=== PATIENT | female | born 1945 | race Caucasian/White ===

== ENCOUNTER 2017-10-22 12:28 | Emergency (ER) | payer MEDICARE, MEDICAID ==
[~2017-10-22] VITALS: Ht 162.6 cm; Wt 68.1 kg
[~2017-10-22 12:28] MED LIST: ADV50250 IH; ALBU8.5H8 IH; ASPI1CPM9 PO; ASPI325T68 PO; BACL10TA2 PO; CLOP75TA35 PO; ESOM40CA PO; FLO0.1T PO; FURO40TA4 PO; GUAI1TBM19 PO; LEVO137T21 PO; LORA0.5T PO; MONT10TA21 PO; NORCO10T PO; POTA10CA44 PO; PROC10TA PO; ROSU20TA PO; SOLI5TAB6 PO
[2017-10-22] MEDS ORDERED: ondansetron/PF 4mg/2ml inj IV ONE (12:40)
[2017-10-22] MEDS ORDERED: normal saline 1000ML IV soln IVB ONE (12:40)
[2017-10-22] MEDS ORDERED: nystatin 500,000 unit/5ML UD oral suspension PO ONE (12:40)
[2017-10-22] MEDS ORDERED: LIDOcaine Viscous 15ml cup PO ONE (12:40)
[2017-10-22] MEDS ORDERED: fluconazole 100mg tablet PO ONE (12:40)
[2017-10-22 12:55] LABS: BASOPHILS % (AUTO) 0.3 % (0-1); EOSINOPHILS # (AUTO) 0.2 X10'3 (0-0.9); EOSINOPHILS % (AUTO) 3.2 % (0-6); HEMATOCRIT 39.1 % (35.0-45.0); HEMOGLOBIN 13.7 g/dl (12.0-16.0); LYMPHOCYTES # (AUTO) 1.1 X10'3 (1.1-4.8); LYMPHOCYTES % (AUTO) 18.5 % (21-51); MEAN CORPUSCULAR VOLUME 91.3 FL (78-98); MEAN PLATELET VOLUME 7.9 FL (7.4-10.4); MONOCYTES # (AUTO) 0.7 X10'3 (0-0.9); PLATELET COUNT 166 X10'3 (140-440); RED BLOOD COUNT 4.28 X10'6 (4.20-5.60); RED CELL DISTRIBUTION WIDTH 13.4 % (11.5-14.5)
[2017-10-22 12:57] VITALS: BP 111/43
[2017-10-22 13:09] LABS: ALANINE AMINOTRANSFERASE 22 U/L (12-78); ALBUMIN 2.8 G/DL (3.4-5.0); ALBUMIN/GLOBULIN RATIO 0.7 (1.1-1.5); ALKALINE PHOSPHATASE 60 IU/L (46-116); ANION GAP 11 (8-16); ASPARTATE AMINO TRANSFERASE 19 U/L (10-37); BILIRUBIN,TOTAL 0.9 MG/DL (0.1-1.0); BLOOD UREA NITROGEN 17 MG/DL (7-18); BUN/CREATININE RATIO 20.5 (6.6-38.0); CALCIUM 8.6 MG/DL (8.5-10.1); CHLORIDE 99 MMOL/L (99-107); CREATININE 0.83 MG/DL (0.40-0.90); GLUCOSE 106 MG/DL (70-104); POTASSIUM 3.9 MMOL/L (3.5-5.1); SODIUM 136 MMOL/L (135-145); TOTAL CARBON DIOXIDE 25.8 MMOL/L (24-32); TOTAL PROTEIN 6.6 G/DL (6.4-8.2); eGFR 67 ML/MIN
[2017-10-22] MEDS ORDERED: NYST1000 PO (13:18)
[2017-10-22] MEDS ORDERED: ONDA4TAB9 SL (13:20)
== END 2017-10-22 13:59 | disposition home or self-care (01) ==
LOC: ER 12:28
DX: E86.0 Dehydration (principal); R11.2 Nausea with vomiting, unspecified; B37.9 Candidiasis, unspecified; I25.10 Atherosclerotic heart disease of native coronary artery without angina pectoris; E78.00 Pure hypercholesterolemia, unspecified; I25.2 Old myocardial infarction; J44.9 Chronic obstructive pulmonary disease, unspecified; K21.9 Gastro-esophageal reflux disease without esophagitis; E11.9 Type 2 diabetes mellitus without complications; G89.29 Other chronic pain; Z90.49 Acquired absence of other specified parts of digestive tract; Z98.890 Other specified postprocedural states; Z79.82 Long term (current) use of aspirin; Z79.899 Other long term (current) drug therapy; Z88.2 Allergy status to sulfonamides
CPT/HCPCS: 36415; 80053; 85025; 96361; 96374; 99284; J2405; J7030

== ENCOUNTER 2017-12-30 14:56 | Emergency (ER) | payer MEDICARE, MEDICAID ==
[~2017-12-30] VITALS: Ht 162.6 cm; Wt 67.8 kg
[~2017-12-30 14:56] MED LIST changes: -PROC10TA PO; +PROC10TA10 PO
[2017-12-30] MEDS ORDERED: ketorolac trometh. 30mg/ml inj. IM ONE (15:50)
[2017-12-30 16:05] VITALS: BP 122/66
== END 2017-12-30 16:17 | disposition home or self-care (01) ==
LOC: ER 14:56
DX: M54.5 Low back pain (principal); I25.10 Atherosclerotic heart disease of native coronary artery without angina pectoris; E78.00 Pure hypercholesterolemia, unspecified; I25.2 Old myocardial infarction; J44.9 Chronic obstructive pulmonary disease, unspecified; K21.9 Gastro-esophageal reflux disease without esophagitis; E11.9 Type 2 diabetes mellitus without complications; Z90.49 Acquired absence of other specified parts of digestive tract; Z90.710 Acquired absence of both cervix and uterus; Z98.890 Other specified postprocedural states; Z60.2 Problems related to living alone; Z79.82 Long term (current) use of aspirin; Z79.899 Other long term (current) drug therapy; Z88.1 Allergy status to other antibiotic agents; Z88.5 Allergy status to narcotic agent; Z88.2 Allergy status to sulfonamides
CPT/HCPCS: 96372; 99283; J1885

== ENCOUNTER 2018-01-05 14:48 | Emergency (ER) | payer MEDICARE, MEDICAID ==
[~2018-01-05] VITALS: Ht 162.6 cm; Wt 29.6 kg
[2018-01-05 15:23] LABS: CLARITY,URINE CLEAR (Clear); COLOR,URINE YELLOW (Yellow); GLUCOSE, URINE NEGATIVE (Neg); KETONES,URINE NEGATIVE (Neg); LEUKOCYTE ESTERASE ,URINE SMALL (Neg); NITRITES, URINE NEGATIVE (Neg); OCCULT BLOOD,URINE NEGATIVE (Neg); PH,URINE 5.5 (4.8-8.0); PROTEIN,URINE NEGATIVE (Neg); UROBILINOGEN,URINE 0.2 E.U/dL (0.2-1.0)
[2018-01-05 15:27] LABS: UA COLLECTION TYPE CLN CATCH MIDSTREAM
[2018-01-05 15:29] LABS: BACTERIA,URINE NONE SEEN /HPF (Neg); MUCUS STRANDS NONE SEEN /LPF (Neg); RBC,URINE 0-2 /HPF (0-2); SQUAMOUS EPITHELIAL CELL,UR FEW /LPF (FEW); WBC,URINE 0-4 /HPF (0-4)
[2018-01-05] MEDS ORDERED: PHEN-716 PO (16:07)
[2018-01-05] MEDS ORDERED: NITR100C6 PO (16:07)
[2018-01-05] MEDS ORDERED: MAGN296S50 PO (16:07)
[2018-01-05 16:15] VITALS: BP 115/58
== END 2018-01-05 16:16 | disposition home or self-care (01) ==
LOC: ER 14:48
DX: N39.0 Urinary tract infection, site not specified (principal); I25.10 Atherosclerotic heart disease of native coronary artery without angina pectoris; E78.00 Pure hypercholesterolemia, unspecified; I25.2 Old myocardial infarction; J44.9 Chronic obstructive pulmonary disease, unspecified; K21.9 Gastro-esophageal reflux disease without esophagitis; E11.9 Type 2 diabetes mellitus without complications; G89.29 Other chronic pain; Z90.49 Acquired absence of other specified parts of digestive tract; Z90.710 Acquired absence of both cervix and uterus; Z98.890 Other specified postprocedural states; Z88.2 Allergy status to sulfonamides; Z88.5 Allergy status to narcotic agent; Z79.899 Other long term (current) drug therapy; Z79.82 Long term (current) use of aspirin
CPT/HCPCS: 81001; 87088; 99284

== ENCOUNTER 2018-07-08 11:47 | Emergency (ER) | payer MEDICARE, MEDICAID ==
[~2018-07-08] VITALS: Ht 162.6 cm; Wt 68.2 kg
[~2018-07-08 11:47] MED LIST changes: +MAGN296S50 PO; +NITR100C6 PO; +PHEN-716 PO
[2018-07-08 12:00] VITALS: BP 113/57
[2018-07-08 12:30] LABS: BASOPHILS # (AUTO) 0.1 X10'3 (0-0.2); BASOPHILS % (AUTO) 1.1 % (0-1); EOSINOPHILS # (AUTO) 0.2 X10'3 (0-0.9); HEMATOCRIT 46.3 % (35.0-45.0); HEMOGLOBIN 15.6 g/dl (12.0-16.0); LYMPHOCYTES # (AUTO) 1.8 X10'3 (1.1-4.8); MEAN CORPUSCULAR HEMOGLOBIN 29.9 PG (27.0-31.0); MEAN CORPUSCULAR HGB CONC 33.7 % (33.0-36.5); MEAN CORPUSCULAR VOLUME 88.8 FL (78-98); MEAN PLATELET VOLUME 8.4 FL (7.4-10.4); MONOCYTES # (AUTO) 0.5 X10'3 (0-0.9); NEUTROPHILS % (AUTO) 65.9 % (42-75); PLATELET COUNT 194 X10'3 (140-440); RED BLOOD COUNT 5.21 X10'6 (4.20-5.60); RED CELL DISTRIBUTION WIDTH 14.6 % (11.5-14.5); WHITE BLOOD COUNT 7.7 X10'3 (4.5-11.0)
[2018-07-08 12:46] LABS: ALANINE AMINOTRANSFERASE 17 U/L (12-78); ALBUMIN 3.7 G/DL (3.4-5.0); ALBUMIN/GLOBULIN RATIO 0.9 (1.1-1.5); ALKALINE PHOSPHATASE 102 IU/L (46-116); ANION GAP 12 (8-16); ASPARTATE AMINO TRANSFERASE 19 U/L (10-37); BILIRUBIN,TOTAL 0.7 MG/DL (0.1-1.0); BLOOD UREA NITROGEN 11 MG/DL (7-18); BUN/CREATININE RATIO 11.3 (6.6-38.0); CHLORIDE 101 MMOL/L (99-107); CREATININE 0.97 MG/DL (0.40-0.90); GLUCOSE 153 MG/DL (70-104); SODIUM 138 MMOL/L (135-145); TOTAL CARBON DIOXIDE 25.2 MMOL/L (24-32); TOTAL PROTEIN 7.6 G/DL (6.4-8.2); eGFR 56 ML/MIN
[2018-07-08 12:55] LABS: CALCIUM 9.6 MG/DL (8.5-10.1)
[2018-07-08 13:06] LABS: PARTIAL THROMBOPLASTIN TIME 27 SECONDS (22-32); PROTHROMBIN TIME 10.1 SECONDS (9.0-12.0)
== END 2018-07-08 14:16 | disposition home or self-care (01) ==
LOC: ER 11:48
DX: R20.2 Paresthesia of skin (principal); I25.10 Atherosclerotic heart disease of native coronary artery without angina pectoris; I25.2 Old myocardial infarction; J44.9 Chronic obstructive pulmonary disease, unspecified; K21.9 Gastro-esophageal reflux disease without esophagitis; G89.29 Other chronic pain; E11.9 Type 2 diabetes mellitus without complications; Z87.11 Personal history of peptic ulcer disease; Z86.73 Personal history of transient ischemic attack (TIA), and cerebral infarction without residual deficits; Z85.3 Personal history of malignant neoplasm of breast; Z90.49 Acquired absence of other specified parts of digestive tract; Z90.710 Acquired absence of both cervix and uterus; Z95.5 Presence of coronary angioplasty implant and graft; Z98.890 Other specified postprocedural states; Z79.82 Long term (current) use of aspirin; Z79.899 Other long term (current) drug therapy; Z88.1 Allergy status to other antibiotic agents; Z88.2 Allergy status to sulfonamides; Z88.5 Allergy status to narcotic agent; Z88.6 Allergy status to analgesic agent
CPT/HCPCS: 36415; 71045; 80053; 84484; 85025; 85610; 85730; 93005; 99284

== ENCOUNTER 2021-02-04 13:08 | Emergency (ER) | payer MEDICARE, MEDICAID ==
[~2021-02-04] VITALS: Ht 160 cm; Wt 64.0 kg
[~2021-02-04 13:08] MED LIST changes: +CLOP75TA34 PO; -CLOP75TA35 PO; -MAGN296S50 PO; +MAGN296S70 PO; -ROSU20TA PO; +ROSU20TA2 PO
[2021-02-04 14:16] LABS: BASOPHILS % (AUTO) 0.2 % (0-1); EOSINOPHILS # (AUTO) 0.2 X10'3 (0-0.9); EOSINOPHILS % (AUTO) 2.2 % (0-6); HEMOGLOBIN 16.1 g/dl (12.0-16.0); LYMPHOCYTES # (AUTO) 1.7 X10'3 (1.1-4.8); LYMPHOCYTES % (AUTO) 18.1 % (21-51); MEAN CORPUSCULAR HEMOGLOBIN 30.9 PG (27.0-31.0); MEAN CORPUSCULAR HGB CONC 33.6 g/dL (33.0-36.5); MEAN CORPUSCULAR VOLUME 91.9 FL (78-98); MEAN PLATELET VOLUME 8.3 FL (7.4-10.4); MONOCYTES # (AUTO) 0.8 X10'3 (0-0.9); NEUTROPHILS # (AUTO) 6.8 X10'3 (1.8-7.7); NEUTROPHILS % (AUTO) 71.5 % (42-75); PLATELET COUNT 184 X10'3 (140-440); RED BLOOD COUNT 5.22 X10'6 (4.20-5.60); RED CELL DISTRIBUTION WIDTH 14.4 % (11.5-14.5); WHITE BLOOD COUNT 9.6 X10'3 (4.5-11.0)
[2021-02-04 14:28] LABS: ALANINE AMINOTRANSFERASE 23 U/L (12-78); ALBUMIN 3.4 G/DL (3.4-5.0); ALBUMIN/GLOBULIN RATIO 0.9 (1.1-1.5); ALKALINE PHOSPHATASE 66 IU/L (46-116); ANION GAP 9 (8-16); ASPARTATE AMINO TRANSFERASE 21 U/L (10-37); BILIRUBIN,TOTAL 0.7 MG/DL (0.1-1.0); BLOOD UREA NITROGEN 22 MG/DL (7-18); BUN/CREATININE RATIO 20.6 (6.6-38.0); CALCIUM 8.6 MG/DL (8.5-10.1); CHLORIDE 99 MMOL/L (99-107); CREATININE 1.07 MG/DL (0.40-0.90); GLUCOSE 123 MG/DL (70-104); POTASSIUM 3.8 MMOL/L (3.5-5.1); SODIUM 134 MMOL/L (135-145); TOTAL PROTEIN 7.2 G/DL (6.4-8.2); eGFR 50 ML/MIN
[2021-02-04 14:30] LABS: LIPASE 86 U/L (73-393); TROPONIN I < 0.04 NG/ML (0.0-0.05)
[2021-02-04] MEDS ORDERED: normal saline 1000ml 1,000 ML IV ONE (15:45)
[2021-02-04] MEDS ORDERED: ondansetron/PF 4mg/2ml inj IV ONE (16:00)
[2021-02-04] MEDS ORDERED: morphine 4 MG/ML inj SYRINge IV ONE (16:05)
[2021-02-04] MEDS ORDERED: iohexol 300mg/ml 100ml inj. ONE (16:08)
[2021-02-04 18:26] LABS: CLARITY,URINE CLEAR (Clear); COLOR,URINE YELLOW (Yellow); GLUCOSE, URINE NEGATIVE (Neg); KETONES,URINE NEGATIVE (Neg); LEUKOCYTE ESTERASE ,URINE NEGATIVE (Neg); NITRITES, URINE NEGATIVE (Neg); OCCULT BLOOD,URINE NEGATIVE (Neg); PH,URINE 5.5 (4.8-8.0); PROTEIN,URINE NEGATIVE (Neg)
[2021-02-04 18:38] LABS: UA COLLECTION TYPE CLN CATCH MIDSTREAM
[2021-02-04] MEDS ORDERED: ONDA4TAB12 PO (18:51)
[2021-02-04 19:05] VITALS: BP 131/66
== END 2021-02-04 19:06 | disposition home or self-care (01) ==
LOC: ER 13:09
DX: K52.9 Noninfective gastroenteritis and colitis, unspecified (principal); I25.10 Atherosclerotic heart disease of native coronary artery without angina pectoris; E78.00 Pure hypercholesterolemia, unspecified; I25.2 Old myocardial infarction; J44.9 Chronic obstructive pulmonary disease, unspecified; K21.9 Gastro-esophageal reflux disease without esophagitis; E11.9 Type 2 diabetes mellitus without complications; G89.29 Other chronic pain; Z87.11 Personal history of peptic ulcer disease; Z85.3 Personal history of malignant neoplasm of breast; Z95.5 Presence of coronary angioplasty implant and graft; Z90.710 Acquired absence of both cervix and uterus; Z90.49 Acquired absence of other specified parts of digestive tract; Z98.890 Other specified postprocedural states; Z79.82 Long term (current) use of aspirin; Z79.899 Other long term (current) drug therapy; Z88.8 Allergy status to other drugs, medicaments and biological substances; Z91.018 Allergy to other foods
CPT/HCPCS: 36415; 74177; 80053; 81003; 83690; 84484; 85025; 96361; 96374; 96375; 99285; J2270; J2405; J7030; Q9967

== ENCOUNTER 2022-03-18 00:32 | Inpatient (IN) | payer MEDICARE, MEDICAID ==
[~2022-03-18] VITALS: Ht 160 cm; Wt 60.9 kg
[~2022-03-18 00:32] MED LIST changes: +ALBU8.5H17 IH; -ALBU8.5H8 IH; -ASPI1CPM9 PO; -ASPI325T68 PO; -BACL10TA2 PO; +CALC-111 PO; +CHOL20002 PO; -FLO0.1T PO; -GUAI1TBM19 PO; +IPRA3AMP31 IH; +LEVO112T52 PO; -LEVO137T21 PO; +LORA-269 PO; -LORA0.5T PO; +LORA10TA7 PO; -MAGN296S70 PO; -NITR100C6 PO; -NORCO10T PO; +OXYC-150 PO; -PHEN-716 PO; -PROC10TA10 PO
[2022-03-18] MEDS ORDERED: proCHLORperazine 10 MG/2 ml inj IV ONE (01:20)
[2022-03-18] MEDS ORDERED: FLUTICASONE (01:50)
[2022-03-18] MEDS ORDERED: OXYC1TAB17 PO (01:50)
[2022-03-18] MEDS ORDERED: ROSU20TA31 PO (01:50)
[2022-03-18] MEDS ORDERED: UMEC62.5 PO (01:50)
[2022-03-18] MEDS ORDERED: POTASSIUM (01:50)
[2022-03-18] MEDS ORDERED: NITR0.4T51 (01:50)
[2022-03-18] MEDS ORDERED: MIRA25TA PO (01:50)
[2022-03-18] MEDS ORDERED: VALA100031 PO (01:50)
[2022-03-18 02:11] LABS: BASOPHILS % (AUTO) 0.2 % (0-1); EOSINOPHILS # (AUTO) 0.1 X10'3 (0-0.9); EOSINOPHILS % (AUTO) 0.9 % (0-6); HEMATOCRIT 40.4 % (35.0-45.0); HEMOGLOBIN 13.8 g/dl (12.0-16.0); LYMPHOCYTES # (AUTO) 0.9 X10'3 (1.1-4.8); LYMPHOCYTES % (AUTO) 8.4 % (21-51); MEAN CORPUSCULAR HEMOGLOBIN 30.9 PG (27.0-31.0); MEAN CORPUSCULAR HGB CONC 34.1 g/dL (33.0-36.5); MEAN CORPUSCULAR VOLUME 90.6 FL (78-98); MEAN PLATELET VOLUME 8.4 FL (7.4-10.4); MONOCYTES # (AUTO) 0.6 X10'3 (0-0.9); MONOCYTES % (AUTO) 6.2 % (2-12); NEUTROPHILS # (AUTO) 8.6 X10'3 (1.8-7.7); NEUTROPHILS % (AUTO) 84.3 % (42-75); PLATELET COUNT 176 X10'3 (140-440); RED BLOOD COUNT 4.46 X10'6 (4.20-5.60); RED CELL DISTRIBUTION WIDTH 14.6 % (11.5-14.5); WHITE BLOOD COUNT 10.2 X10'3 (4.5-11.0)
[2022-03-18 02:29] LABS: ALANINE AMINOTRANSFERASE 23 U/L (12-78); ALBUMIN 3.1 G/DL (3.4-5.0); ALBUMIN/GLOBULIN RATIO 0.8 (1.1-1.5); ALKALINE PHOSPHATASE 64 IU/L (46-116); ANION GAP 9 (8-16); ASPARTATE AMINO TRANSFERASE 27 U/L (10-37); BILIRUBIN,TOTAL 0.2 MG/DL (0.1-1.0); BLOOD UREA NITROGEN 19 MG/DL (7-18); BUN/CREATININE RATIO 17.8 (6.6-38.0); CALCIUM 8.2 MG/DL (8.5-10.1); CHLORIDE 108 MMOL/L (99-107); CREATININE 1.07 MG/DL (0.40-0.90); GLUCOSE 123 MG/DL (70-104); LIPASE 147 U/L (73-393); POTASSIUM 3.1 MMOL/L (3.5-5.1); SODIUM 142 MMOL/L (135-145); TOTAL CARBON DIOXIDE 24.7 MMOL/L (24-32); eGFR 49 ML/MIN
[2022-03-18] MEDS ORDERED: bisacodyl 10mg suppository rectal RC PRN (02:40)
[2022-03-18] MEDS ORDERED: ondansetron 4mg rapidly disintigrating tab PO PRN (02:40)
[2022-03-18] MEDS ORDERED: mag hydrox/Alum hydrox/simeth 30ml oral suspension PO PRN (02:40)
[2022-03-18] MEDS ORDERED: diphenhydrAMINE 50 mg/ml inj IV PRN (02:40)
[2022-03-18] MEDS ORDERED: magnesium hydroxide 30ml (MOM) UD suspension PO PRN (02:40)
[2022-03-18] MEDS ORDERED: acetaminophen 650mg rectal suppository RC PRN (02:40)
[2022-03-18] MEDS ORDERED: diphenhydrAMINE 25mg capsule PO PRN (02:40)
[2022-03-18] MEDS ORDERED: acetaminophen 325mg tablet PO PRN ×2 (02:40)
[2022-03-18] MEDS ORDERED: ondansetron/PF 4mg/2ml inj IV PRN (02:40)
[2022-03-18] MEDS ORDERED: normal saline 1000ml 1,000 ML IV SCH (02:40)
[2022-03-18] MEDS ORDERED: glucagon, human recombinant 1mg kit SUBCUT PRN (02:50)
[2022-03-18] MEDS ORDERED: insulin Lispro (HumaLOG) vial - multi-dose SQ SCH (02:50)
[2022-03-18] MEDS ORDERED: DEXTROSE 15 GM of carb/4 tabs (each vial/BOTTLE has 4 tablets) PO PRN ×2 (02:50)
[2022-03-18] MEDS ORDERED: dextrose 50%-water 50ml dispensing syringe IV PRN ×2 (02:50)
[2022-03-18] MEDS ORDERED: MESSAGE TO PHARMACY PO ONE (02:50)
[2022-03-18] MEDS ORDERED: magnesium Cl slow-release 64mg tablet PO PRN (02:55)
[2022-03-18] MEDS ORDERED: potassium CL 10mEq/100ml bag 100 ML IV PRN (02:55)
[2022-03-18] MEDS ORDERED: magnesium 4gm in 100ml NS 100 ML IV PRN (02:55)
[2022-03-18] MEDS ORDERED: magnesium 2GM in 50ml NS 50 ML IV PRN (02:55)
[2022-03-18] MEDS ORDERED: POTASSIUM BICARB 20meq eff tab 20 MEQ TABLET.EFF PO PRN ×2 (02:55)
[2022-03-18 04:26] LABS: APTT 28 SECONDS (22-32); D-DIMER 0.96 MG/L FEU (0-0.50)
[2022-03-18 04:37] LABS: CREATINE KINASE 49 U/L (26-192); PHOSPHORUS 3.9 MG/DL (2.3-4.5); POTASSIUM 3.6 MMOL/L (3.5-5.1)
[2022-03-18 05:38] LABS: CLARITY,URINE CLEAR (Clear); COLOR,URINE YELLOW (Yellow); GLUCOSE, URINE NEGATIVE (Neg); KETONES,URINE NEGATIVE (Neg); LEUKOCYTE ESTERASE ,URINE NEGATIVE (Neg); NITRITES, URINE NEGATIVE (Neg); OCCULT BLOOD,URINE NEGATIVE (Neg); PH,URINE 5.5 (4.8-8.0); PROTEIN,URINE NEGATIVE (Neg); UROBILINOGEN,URINE 0.2 E.U/dL (0.2-1.0)
[2022-03-18 05:40] LABS: UA COLLECTION TYPE CLN CATCH MIDSTREAM
[2022-03-18] MEDS ORDERED: docusate sod 100mg capsule PO SCH (08:00)
[2022-03-18] MEDS ORDERED: nicotine 21mg patch - 24 hr TD SCH (08:00)
[2022-03-18] MEDS ORDERED: aspirin 81mg, enteric-coated 1 TAB TABLET.DR PO SCH (08:00)
[2022-03-18] MEDS ORDERED: pantoprazole 40MG/NS 100ML BAG 100 ML IV SCH (08:00)
[2022-03-18] MEDS ORDERED: K and/or MAG REPLACEMENT MC SCH (08:00)
[2022-03-18 11:00] VITALS: BP 101/42
--- NOTE | 2022-03-18 11:00 | NUR ---
PAGE SENT TO DR GREEN R/Benita NARANJO COMPLAINT OF SHORTNESS OF BREATH WITH EXERTION.
--- NOTE | 2022-03-18 12:40 | NUR ---
PAGE SENT TO DR GREEN REGARDING PATIENT ABLE TO TOLERATE DIET AND AMBULATE WITHOUT ASSISTANCE.
[2022-03-18] MEDS ORDERED: insulin glargine (Lantus) pen - multi-dose SQ SCH (21:00)
[2022-03-18] MEDS ORDERED: temazepam 15mg capsule PO PRN (21:00)
--- NOTE | 2022-03-27 16:33 | NUR ---
Case Management DC follow up: Spoke with Patient via telephone. S/P: Patient Reports: Denies Acute/continuous CP, emergent SOB,resp distress, dyspnea. Verbalizes she has weakness, and fleeting episode of nausea; however no vomiting.Denies muscle cramps, RUVALCABA, rash, dry mouth.Denies syncopal episodes, orthostatic hypotension; however verbalizes she has had vertigo.Denies : RUVALCABA, blurry vision,, s/s of stroke/BE-FAST, dysphagia, dysuria, hematuria, retention, abdominal pain/distention, hematochezia, melena, unexplained bruising, bleeding, fever, chills.Verbalizes understanding of current RX:, why prescribed;continues/resumes current Rx as ordered.Verbalizes understanding of s/s that warrant a -/ER visit for further evaluation. Patient has not scheduled a follow up appointment with her PCP Dr. Dozier. Verbalizes she will contact Dr. Dozier offices at the end of this call..Patient verbalizes [facility] nurse has been out to see her.Verbalizes she did not like spending time in the ED.Needs met, Questions/concerns addressed at DC.No further questions regarding recent hospital stay, and/or DC status at this time.
== END 2022-03-18 14:12 | disposition home or self-care (01) | DRG 392 ==
LOC: ER 00:32 → ED HOLD 02:49
PROVIDERS: ADMIT Family Medicine; ATTEND Internal Medicine
DX: A08.4 Viral intestinal infection, unspecified (principal); I13.0 Hypertensive heart and chronic kidney disease with heart failure and stage 1 through stage 4 chronic kidney disease, or unspecified chronic kidney disease; I50.32 Chronic diastolic (congestive) heart failure; N17.9 Acute kidney failure, unspecified; R10.9 Unspecified abdominal pain; E03.9 Hypothyroidism, unspecified; E11.22 Type 2 diabetes mellitus with diabetic chronic kidney disease; E78.00 Pure hypercholesterolemia, unspecified; E87.6 Hypokalemia; F17.210 Nicotine dependence, cigarettes, uncomplicated; F41.9 Anxiety disorder, unspecified; K57.90 Diverticulosis of intestine, part unspecified, without perforation or abscess without bleeding; G89.4 Chronic pain syndrome; Z60.2 Problems related to living alone; K21.9 Gastro-esophageal reflux disease without esophagitis; I25.10 Atherosclerotic heart disease of native coronary artery without angina pectoris; M54.9 Dorsalgia, unspecified; J44.9 Chronic obstructive pulmonary disease, unspecified; K74.60 Unspecified cirrhosis of liver; N18.9 Chronic kidney disease, unspecified; Z85.3 Personal history of malignant neoplasm of breast; Z86.73 Personal history of transient ischemic attack (TIA), and cerebral infarction without residual deficits; I25.2 Old myocardial infarction; Z87.11 Personal history of peptic ulcer disease; Z90.49 Acquired absence of other specified parts of digestive tract; Z90.710 Acquired absence of both cervix and uterus; Z98.1 Arthrodesis status; Z88.8 Allergy status to other drugs, medicaments and biological substances; Z88.5 Allergy status to narcotic agent; Z82.49 Family history of ischemic heart disease and other diseases of the circulatory system; Z82.3 Family history of stroke; Z95.5 Presence of coronary angioplasty implant and graft; Z79.899 Other long term (current) drug therapy; Z71.6 Tobacco abuse counseling
CPT/HCPCS: 36415; 71250; 74176; 80053; 81003; 82550; 83605; 83690; 83735; 83880; 84100; 84132; 84439; 84443; 84480; 84484; 85025; 85379; 85610; 85730; 87040; 93005; 96374; 99285; C9113; G0378; J0780; J1815; J3480; J7030